=== PATIENT | female | born 1960 | race Caucasian/White ===

== ENCOUNTER 2025-04-05 16:33 | Emergency (ER) | payer BC, OTHER ==
[2025-04-05] MEDS ORDERED: KETOROLAC 30 MG/ML INJ ONE (17:39)
[2025-04-05] MEDS ORDERED: NA CHLORIDE 0.9% 1,000 ML ONE (17:39)
[2025-04-05] MEDS ORDERED: MORPHINE 4 MG/ML SYR ONE (17:39)
[2025-04-05] MEDS ORDERED: ONDANSETRON 4 MG/2 ML VIAL ONE (17:39)
[2025-04-05 17:45] LABS: Absolute Lymphocytes (CBC) 0.6 K/uL (0.7-4.9); Hematocrit 39.6 % (36.0-45.0); Hemoglobin 13.4 g/dL (12.0-15.0); MCH 32.5 pg (27.0-35.0); MCHC 33.7 g/dL (32.0-36.0); MCV 96.4 fL (80-100); MPV 8.1 fL (7.6-11.3); Nucleated RBC Absolute Count 0.0 (0-0); Nucleated Red Blood Cells % 0.0 % (0-0); RBC Red Blood Cell Count 4.11 M/uL (3.86-4.86); White Blood Count 15.10 thou/uL (4.3-10.9)
[2025-04-05 17:55] LABS: Urine Crystals Unidentified Few /HPF (None Seen); Urine Culture Reflex Order REFLEXED; Urine Microscopic Reflex YN ORDER UMIC; Urine WBC Clump Occasional /HPF (None Seen); Urine Yeast (Budding) Trace /HPF (None Seen)
[2025-04-05 18:37] LABS: Blood Morphology Comment NOT SEEN (NOT SEEN); White Blood Cell Scan OK (OK)
[2025-04-05 18:44] LABS: PT Prothrombin Time 14.2 SECONDS (10-13.0); PTT, Activated Partial Thromb 34.7 SECONDS (27.2-37.4); Protime INR 1.27
[2025-04-05 19:32] LABS: ALT/SGPT 23.0 U/L (13-56); AST/SGOT 20.0 U/L (15-37); Albumin 2.7 g/dL (3.4-5.0); Albumin/Globulin Ratio 0.9 (1.1-1.8); Alkaline Phosphatase 73.0 U/L (45-117); Anion Gap 8.9 mEq/L (5.0-15.0); BUN Blood Urea Nitrogen 18.0 mg/dL (7-18); Globulin 3.1 g/dL (2.3-3.5); Glucose Level 115.0 mg/dL (74-106); Lipase 10.0 U/L (13-75); Potassium 3.9 mEq/L (3.5-5.1)
[2025-04-05] MEDS ORDERED: CEFTRIAXONE 1000 MG/VIAL ONE (19:59)
--- NOTE | 2025-04-05 20:11 | ER ---
Nurse's Notes [facility] Name: Harper Pelaez Age: 64 yrs Sex: Female : 1960 Arrival Date: 04/05/2025 Time: 16:33 Bed 14 Private MD: Diagnosis: UTI/ Urinary tract infection, site not specified;Hydronephrosis with ureteral stricture, not elsewhere classified-left Presentation: 04/05 16:45 Chief complaint: Patient states: she started having left flank pain yesterday. patient ap3 states she has a history of kidney stones and believes she is having one now. Coronavirus screen: At this time, the client does not indicate any symptoms associated with coronavirus-19. Ebola Screen: No symptoms or risks identified at this time. Initial Sepsis Screen: Does the patient meet any 2 criteria? HR > 90 bpm. Does the patient have a suspected source of infection? No. Patient's initial sepsis screen is negative. Risk Assessment: Do you want to hurt yourself or someone else? Patient reports no desire to harm self or others. Onset of symptoms was April 04, 2025. 16:45 Method Of Arrival: Ambulatory ap3 16:45 Acuity: JAZMYNE 3 ap3 Triage Assessment: 16:47 General: Appears in no apparent distress. Behavior is calm, cooperative, appropriate ap3 for age. Pain: Complains of pain in left flank. Neuro: Level of Consciousness is awake, alert, obeys commands, Oriented to person, place, time, situation, Appropriate for age. Cardiovascular: Patient's skin is warm and dry. Respiratory: Airway is patent Respiratory effort is even, unlabored, Respiratory pattern is regular, symmetrical. GI: Reports lower abdominal pain. : Reports pain in left flank(s). Historical: - Allergies: 16:46 No Known Allergies; ap3 - Home Meds: 16:46 None [Active]; ap3 - PMHx: 16:46 None; ap3 - Immunization history:: Adult Immunizations up to date. - Infectious Disease History:: Denies. - Social history:: Smoking status: Patient reports the use of cigarette tobacco products, smokes 1.5 packs per day. Screenin:47 [facility] ED Fall Risk Assessment (Adult) History of falling in the last 3 months, ap3 including since admission No falls in past 3 months (0 pts) Confusion or Disorientation No (0 pts) Intoxicated or Sedated No (0 pts) Impaired Gait No (0 pts) Mobility Assist Device Used No (0 pt) Altered Elimination No (0 pt) Score/Fall Risk Level 0 - 2 = Low Risk Oriented to surroundings, Maintained a safe environment, Educated pt \T\ family on fall prevention, incl call for assistance when getting out of bed, Assessed \T\ reinforced patient's understanding of fall precautions, Hourly rounding (assess needs \T\ fall precautionary measures) done, Used ambulatory aids as needed (educated on \T\ assisted with). Abuse screen: Denies threats or abuse. Nutritional screening: No deficits noted. Tuberculosis screening: No symptoms or risk factors identified. Assessment: 17:48 Reassessment: Patient appears in no apparent distress at this time. Patient and/or db family updated on plan of care and expected duration. Pain level reassessed. Patient is alert, oriented x 3, equal unlabored respirations, skin warm/dry/pink. General: Appears in no apparent distress. comfortable, Behavior is calm, cooperative. Neuro: Level of Consciousness is awake, alert, obeys commands, Oriented to person, place, time, situation. Respiratory: Airway is patent Respiratory effort is even, unlabored, Respiratory pattern is regular, symmetrical. GI: Bowel sounds present X 4 quads. Abd is soft Reports lower abdominal pain. 19:31 Reassessment: Patient appears in no apparent distress at this time. Patient and/or bm8 family updated on plan of care and expected duration. Pain level reassessed. Patient is alert, oriented x 3, equal unlabored respirations, skin warm/dry/pink. Patient denies pain at this time. Patient states feeling better. Patient states symptoms have improved. General: Appears in no apparent distress. comfortable, Behavior is calm, cooperative, appropriate for age. Pain: Denies pain. Neuro: No deficits noted. Cardiovascular: No deficits noted. Respiratory: No deficits noted. Airway is patent Trachea midline Respiratory effort is even, unlabored, Respiratory pattern is regular, symmetrical. GI: No deficits noted. No signs and/or symptoms were reported involving the gastrointestinal system. : No deficits noted. No signs and/or symptoms were reported regarding the genitourinary system. EENT: No deficits noted. No signs and/or symptoms were reported regarding the EENT system. Derm: No deficits noted. No signs and/or symptoms reported regarding the dermatologic system. Musculoskeletal: No deficits noted. No signs and/or symptoms reported regarding the musculoskeletal system. 20:19 Reassessment: Patient appears in no apparent distress at this time. Patient and/or bm8 family updated on plan of care and expected duration. Pain level reassessed. Patient is alert, oriented x 3, equal unlabored respirations, skin warm/dry/pink. Patient denies pain at this time. Patient states feeling better. Patient states symptoms have improved. 21:30 Reassessment: Patient and/or family updated on plan of care and expected duration. Pain zm level reassessed. Patient is alert, oriented x 3, equal unlabored respirations, skin warm/dry/pink. Patient states symptoms have not improved. Pain: Pain currently is 7 out of 10 on a pain scale. 22:09 Reassessment: attempted to give report and was placed on hold for longer than 6 minutes.zm 22:21 Reassessment: Report given to BABR Casas at [facility]. Vital Signs: 16:45 BP 151 / 97; Pulse 96; Resp 18; Temp 97.5; Pulse Ox 98% ; Weight 90.72 kg; Height 5 ft. ap3 4 in. ; 17:42 BP 99 / 76; Pulse 92; Resp 18; Pulse Ox 98% ; db 18:00 BP 108 / 56; Pulse 93; Resp 16; Pulse Ox 98% ; db 19:32 BP 108 / 60; Pulse 101; Resp 19; Temp 97.5; Pulse Ox 98% ; Pain 0/10; bm8 20:19 BP 105 / 60; Pulse 100; Resp 19; Temp 97.5; Pulse Ox 96% ; Pain 0/10; bm8 22:54 BP 115 / 59; Pulse 107; Resp 16; Temp 97.9; Pulse Ox 95% on 2 lpm NC; zm 16:45 Body Mass Index 34.33 (90.72 kg, 162.56 cm) ap3 19:32 Pain Scale: Adult bm8 20:19 Pain Scale: Adult bm8 Bridger Coma Score: 19:32 Eye Response: spontaneous(4). Motor Response: obeys commands(6). Verbal Response: bm8 oriented(5). Total: 15. 20:19 Eye Response: spontaneous(4). Motor Response: obeys commands(6). Verbal Response: bm8 oriented(5). Total: 15. 22:54 Eye Response: spontaneous(4). Motor Response: obeys commands(6). Verbal Response: zm oriented(5). Total: 15. ED Course: 16:38 Patient arrived in ED. al6 16:38 Liz Leon PA-C is PHCP. sb4 16:38 Ghanshyam Tracey MD is Attending Physician. sb4 16:46 Triage completed. ap3 16:48 Arm band placed on right wrist. ap3 17:31 Giulia Longo, RN is Primary Nurse. db 17:35 Initial lab(s) drawn, by me, sent to lab. Inserted saline lock: 20 gauge in right db antecubital area, using aseptic technique. Blood collected. Flushed with 10 mL NS. 17:38 UA Rfx Tommy Cult if indicated Sent. rk3 17:39 CBC with Diff Sent. rk3 17:39 CMP Sent. rk3 17:39 Lipase Sent. rk3 18:00 First set of blood cultures drawn by me. db 18:07 Patient has correct armband on for positive identification. Bed in low position. Call db light in reach. Side rails up X 1. Pulse ox on. NIBP on. Warm blanket given. Pillow given. 18:22 Lab(s) recollected, sent to lab. Second set of blood cultures drawn by me. db 18:48 Radiology exam delayed due to lab results not completed at this time. (BUN/Creatinine). iv 19:24 Naseem Kennedy, RN is Primary Nurse. bm8 19:32 No provider procedures requiring assistance completed. Patient maintains SpO2 bm8 saturation greater than 95% on room air. 19:59 CT Abd/Pelvis - IV Contrast Only In Process Unspecified. EDMS 20:03 PHCP role handed off by Liz Leon PA-C cp 20:03 Nikita Brink PA-C is PHCP. cp 20:21 Provided Education on: need for transfer. bm8 20:21 Patient transferred, IV remains in place. bm8 21:44 Bed in low position. Call light in reach. Side rails up X2. Client placed on continuous zm cardiac and pulse oximetry monitoring. NIBP monitoring applied. monitoring tech on. 21:44 Oxygen administration via nasal cannula \T\ 2L/min. zm 21:50 pt was accepted to [facility] [address] 1631. Accepting G[facility] [place] \T\[id number]. Accepting admin kmf Angelika Leal \T\2121. Number for nurse to nurse report [phone]. 21:52 [facility] to transfer pt. kmf Administered Medications: 17:40 Drug: TORadol - Ketorolac IVP 15 mg IVP once Route: IVP; Site: right antecubital; db 20:20 Follow up: Response: No adverse reaction bm8 17:40 Drug: Ondansetron IVP 4 mg IVP once; over 2 minutes Route: IVP; Site: right antecubital;db 20:20 Follow up: Response: No adverse reaction bm8 17:40 Drug: morphine IVP or IV 4 mg IVP once over 4 mins Route: IVP; Infused Over: 4 mins; db Site: right antecubital; 20:20 Follow up: Response: No adverse reaction bm8 17:40 Drug: NS 0.9% IV 1000 ml IV at 1 bolus Per protocol; to be given as a bolus over 60 db minutes Route: IV; Rate: 1 bolus; Site: right antecubital; 20:20 Follow up: Response: No adverse reaction; IV Status: Completed infusion bm8 20:18 Drug: Rocephin IV 1 grams IV at calculated rate once; Given slow IV push per pharmacy bm8 instructions Route: IV; Rate: calculated rate; Site: right forearm; 21:43 Follow up: Response: No adverse reaction; IV Status: Completed infusion zm 21:40 Drug: fentaNYL (PF) IVP 50 mcg IVP once Route: IVP; Site: right antecubital; zm 22:41 Follow up: Response: No adverse reaction Medication: 19:32 VIS not applicable for this client. bm8 Outcome: 20:10 ER care complete, transfer ordered by . christine 22:54 Transferred by ground EMS to [facility], Transfer form completed. zm X-rays sent w/ patient. 22:54 Condition: stable 22:54 Instructed on follow up and referral plans. the need for transfer, Demonstrated understanding of instructions, follow-up care, 22:57 Patient left the ED. zm Signatures: Dispatcher [employer] EDMT Page, LEXII Shelton PA-C, cp, Amanda RN RN ap3 Yaquelin Cummings RN RN zm Giulia Longo, RN RN Liz Mercedes PA-C PA-C sb4 Janell Kat iv, Kelsey Maroul [facility] Naseem Kennedy RN RN bm8 Karla Park al6 Jaya Craig rk3 Corrections: (The following items were deleted from the chart) 20:06 20:04 BP 120 / 96; Pulse 70bpm; Resp 18bpm; Pulse Ox 94% 3 lpm; Temp 98F; bm8 bm8 21:42 21:41 Reassessment: Patient and/or family updated on plan of care and expected zm duration. Pain level reassessed. Patient is alert, oriented x 3, equal unlabored respirations, skin warm/dry/pink. Patient states symptoms have not improved. 21:42 21:41 Pain: Pain currently is 7 out of 10 on a pain scale. [facility]
--- NOTE | 2025-04-05 20:11 | EDPHYS ---
Physician Documentation [facility] Name: Harper Pelaez Age: 64 yrs Sex: Female : 1960 Arrival Date: 04/05/2025 Time: 16:33 Bed 14 Private MD: ED Physician Ghanshyam Tracey HPI: 04/05 17:12 This 64 yrs old Female presents to ER via Ambulatory with complaints of Abdominal Pain, sb4 Low Back Pain. 17:12 Patient reports left flank pain and left lower quadrant abdominal pain since yesterday sb4 morning. States that the pain feels similar to when she has had a kidney stone. States her last stone was 10 years ago and required lithotripsy. Denies any difficulty urinating, pain with urination, or blood in her urine. Denies any nausea, vomiting, diarrhea. States that she took some magnesium last night that did not improve her symptoms. Historical: - Allergies: 16:46 No Known Allergies; ap3 - Home Meds: 16:46 None [Active]; ap3 - PMHx: 16:46 None; ap3 - Immunization history:: Adult Immunizations up to date. - Infectious Disease History:: Denies. - Social history:: Smoking status: Patient reports the use of cigarette tobacco products, smokes 1.5 packs per day. ROS: 17:12 Constitutional: Negative for fever, chills, and weight loss, sb4 17:12 Abdomen/GI: Positive for abdominal pain, 17:12 Back: Positive for flank pain, on the left, 17:12 All other systems are negative, Exam: 17:12 Head/Face: Normocephalic, atraumatic. Eyes: Extra-ocular motions intact. Periorbital sb4 areas with no swelling, redness, or edema. ENT: Mucous membranes moist. Cardiovascular: Regular rate and rhythm with a normal S1 and S2. Respiratory: No increased work of breathing, no retractions or nasal flaring. Skin: Warm, dry with normal turgor. Normal color with no rashes, no lesions, and no evidence of cellulitis. 17:12 Constitutional: The patient appears alert, awake, uncomfortable, 17:12 Abdomen/GI: Palpation: mild abdominal tenderness, in the left upper quadrant and left lower quadrant, 17:12 Back: CVA tenderness, is noted on the left, Vital Signs: 16:45 BP 151 / 97; Pulse 96; Resp 18; Temp 97.5; Pulse Ox 98% ; Weight 90.72 kg; Height 5 ft. ap3 4 in. ; 17:42 BP 99 / 76; Pulse 92; Resp 18; Pulse Ox 98% ; db 18:00 BP 108 / 56; Pulse 93; Resp 16; Pulse Ox 98% ; db 19:32 BP 108 / 60; Pulse 101; Resp 19; Temp 97.5; Pulse Ox 98% ; Pain 0/10; bm8 20:19 BP 105 / 60; Pulse 100; Resp 19; Temp 97.5; Pulse Ox 96% ; Pain 0/10; bm8 22:54 BP 115 / 59; Pulse 107; Resp 16; Temp 97.9; Pulse Ox 95% on 2 lpm NC; zm 16:45 Body Mass Index 34.33 (90.72 kg, 162.56 cm) ap3 19:32 Pain Scale: Adult bm8 20:19 Pain Scale: Adult bm8 Blackey Coma Score: 19:32 Eye Response: spontaneous(4). Motor Response: obeys commands(6). Verbal Response: bm8 oriented(5). Total: 15. 20:19 Eye Response: spontaneous(4). Motor Response: obeys commands(6). Verbal Response: bm8 oriented(5). Total: 15. 22:54 Eye Response: spontaneous(4). Motor Response: obeys commands(6). Verbal Response: zm oriented(5). Total: 15. MDM: 16:39 Medical Screening Exam initiated sb4 17:14 Differential diagnosis: diverticulitis, non-specific abd pain, Pyelonephritis, sb4 Ureterolithiasis, urinary tract infection. 19:29 Awaiting: labs results, Chemistry was hemolyzed and repeat collect was sent without a sb4 barcode therefore delaying results and imaging. 20:00 Post IV fluid administration reassessment for Sepsis: Client not prescribed the 30 cp mL/kg IVF due to: Amount of IVF prescribed: 1000 lactate wnl Lungs: Noted to be clear bilaterally. Current vital signs reviewed: Yes. 20:30 Data reviewed: vital signs, nurses notes, lab test result(s), radiologic studies, CT cp scan, I have discussed the patient's presentation/case with the attending Emergency Department Physician; and as a result, I will transfer patient for urology services. 20:30 I considered the following discharge prescriptions or medication management in the emergency department Medications were administered in the Emergency Department. See MAR. Counseling: I had a detailed discussion with the patient and/or guardian regarding the historical points, exam findings, and any diagnostic results supporting the discharge/admit diagnosis, lab results, radiology results, the need to transfer to another facility, [facility] does not immediately have the required specialist. Response to treatment: the patient's symptoms have mildly improved after treatment. 21:06 ED course: Consult with urologist Dr. Espitia at [facility] in [place] who will consult and cp request transfer be done to service of hospitalist. 04/05 16:58 Order name: CBC with Diff; Complete Time: 18:37 [facility] 04/05 20:08 Interpretation: Normal except: WBC 15.10; GERONIMO% 91.5; LYM% 4.3; NEUT A 13.8; LYMA 0.6. 04/05 16:58 Order name: CMP; Complete Time: 19:33 [facility] 04/05 20:08 Interpretation: Normal except: CL 111; GLUC 115; CRE 1.47; GFR 40; CA 7.9; TP 5.8; A/G cp 0.9; ALB 2.7. 04/05 16:58 Order name: Lipase; Complete Time: 19:33 4 04/05 16:58 Order name: UA Rfx Tommy Cult if indicated; Complete Time: 18:04 [facility] 04/05 20:09 Interpretation: Normal except: [facility] Extremely Turbid; Urine SG > 1.030; UBLD 3+; UPROT cp 1+; UUROB 1+; UESTR 500; UWBC >50; URBC 21-50; UWBC Clump Occasional; BYST Trace. 04/05 17:52 Order name: CBC Smear Scan; Complete Time: 18:37 [facility] 04/05 18:04 Order name: Urine Culture [facility] 04/05 18:05 Order name: Blood Culture Adult (2) [facility] 04/05 18:05 Order name: Lactate w/ 2H reflex if indic.; Complete Time: 18:53 [facility] 04/05 18:05 Order name: Protime (+inr); Complete Time: 18:49 [facility] 04/05 18:05 Order name: Ptt, Activated; Complete Time: 18:49 4 04/05 16:58 Order name: CT Abd/Pelvis - IV Contrast Only; Complete Time: 20:26 sb4 04/05 16:58 Order name: IV Saline Lock; Complete Time: 17:38 sb4 04/05 16:58 Order name: Labs collected and sent; Complete Time: 17:38 4 04/05 17:51 Order name: Labs - recollect needed: recollect the comp and lipase; Complete Time: 18:27eb Administered Medications: 17:40 Drug: TORadol - Ketorolac IVP 15 mg IVP once Route: IVP; Site: right antecubital; db 20:20 Follow up: Response: No adverse reaction bm8 17:40 Drug: Ondansetron IVP 4 mg IVP once; over 2 minutes Route: IVP; Site: right antecubital;db 20:20 Follow up: Response: No adverse reaction bm8 17:40 Drug: morphine IVP or IV 4 mg IVP once over 4 mins Route: IVP; Infused Over: 4 mins; db Site: right antecubital; 20:20 Follow up: Response: No adverse reaction bm8 17:40 Drug: NS 0.9% IV 1000 ml IV at 1 bolus Per protocol; to be given as a bolus over 60 db minutes Route: IV; Rate: 1 bolus; Site: right antecubital; 20:20 Follow up: Response: No adverse reaction; IV Status: Completed infusion bm8 20:18 Drug: Rocephin IV 1 grams IV at calculated rate once; Given slow IV push per pharmacy bm8 instructions Route: IV; Rate: calculated rate; Site: right forearm; 21:43 Follow up: Response: No adverse reaction; IV Status: Completed infusion zm 21:40 Drug: fentaNYL (PF) IVP 50 mcg IVP once Route: IVP; Site: right antecubital; zm 22:41 Follow up: Response: No adverse reaction zm Disposition Summary: 04/05/25 20:10 Transfer Ordered Notes: Reason: Higher level of care cp Condition: Stable cp Problem: new cp Symptoms: have improved cp Transfer Location: [facility](04/05/25 21:16) cp Accepting Physician: doctor(04/05/25 22:57) zm Diagnosis - UTI/ Urinary tract infection, site not specified cp - Hydronephrosis with ureteral stricture, not elsewhere classified - left cp Forms: - Medication Reconciliation Form cp - SBAR form cp Signatures: Dispatcher [employer] EDMS Nikita Brink, Diamond Duarte PA-C, cp, RN RN ap3 Jazlyn Mora Zaina, RN RN zm Giulia Longo, RN RN Liz Mercedes PA-C PA-C sb4 Naseem Kennedy RN RN bm8 Corrections: (The following items were deleted from the chart) 18:05 18:05 BLOOD CULTURE*+BA.LAB.BRZ ordered. EDMS EDMS 18:05 18:05 LACTATE+C.LAB.BRZ ordered. EDMS EDMS 18:05 18:05 PROTIME (+INR)+COAG.LAB.BRZ ordered. EDMS EDMS 18:05 18:05 PTT, ACTIVATED+COAG.LAB.BRZ ordered. EDMS EDMS 20:33 20:10 doctor cp cp 21:16 20:10 [facility] cp cp 21:16 20:33 doctor cp cp 22:57 21:16 doctor cp zm
--- NOTE | 2025-04-05 20:22 | RAD REPORT ---
EXAMINATION: Abdomen Pelvis W Contrast CLINICAL INDICATION: Female, 64 years old.Abd pain;Flank pain TECHNIQUE: CT abdomen and pelvis was performed, after the administration of IV contrast, [facility]. Axial, sagittal and coronal reconstructions were obtained. One or more of the following dose reduction techniques were used: Automated exposure control, adjustment of the mA and/o r kV according to patient size, and/or iterative reconstruction. Unless otherwise specified, incidental findings do not require dedicated imaging follow-up. [id number]. COMPARISON: No prior exams FINDINGS: LOWER CHEST: Likely atelectasis versus pneumonitis at the left lung base.No significant pericardial e ffusion. Mild circumferential thickening of the distal esophagus which could reflect esophagitis. UPPER GI: No significant abnormality. LIVER: Hepatic steatosis, but otherwise unremarkable. GALLBLADDER/BILE DUCTS: No biliary ductal dilatation.? PANCREAS: No mass, ductal dilation, or stefano-pancreatic fluid. SPLEEN: Unremarkable. ADRENALS: No adrenal masses. KIDNEYS AND URETERS: Severe hydronephrosis at the upper pole the left kidney and to lesser extent the left lower pole. Multiple left renal calculi. The largest is a conglomerate of stones in the lower pole measuring 14 mm. There are a couple of stones in the renal pelvis however the obstruction may or may not be as a result of the stone and could be from a stricture.There is evidence of some left renal cortical thinning. The right kidney is mildly atrophic. ABDOMINAL AORTA AND OTHER VESSELS: Moderate atherosclerotic changes without aortic aneurysm. PERITONEUM: No abnormal free fluid. No free air. LYMPH NODES: No pathologic lymphadenopathy. ABDOMINAL WALL: Unremarkable SMALL BOWEL/COLON: Small bowel has normal course and caliber. No colonic wall thickening or pericolon ic inflammatory changes.Normal appendix. Mild diverticulosis without diverticulitis. URINARY BLADDER: Underdistended but grossly unremarkable. REPRODUCTIVE ORGANS: No pathologic process. MUSCULOSKELETAL: Multilevel degenerative changes in the spine. No acute fracture. ADDITIONAL FINDINGS: None. IMPRESSION: Left-sided hydronephrosis and possible associated infection secondary to an obstruction at the level of the left UPJ. Multiple left renal calculi are present including stones at the left renal pelvis however the obstruction could be either as a result of a left UPJ stricture or obstructing stone. The stone that is near the left UPJ but does not appear to be covering the orifice. Recommend urologic consultation.
[2025-04-05] MEDS ORDERED: FENTANYL CITR 100 MCG/2 ML ONE (21:27)
[2025-04-06 08:20] VITALS: BP 115/59; TEMP 97.9; O2SAT 95
== END 2025-04-05 22:57 | disposition short-term general hospital (02) ==
LOC: ER 16:33
DX: N39.0 Urinary tract infection, site not specified (principal); N13.1 Hydronephrosis with ureteral stricture, not elsewhere classified; Z87.442 Personal history of urinary calculi; F17.210 Nicotine dependence, cigarettes, uncomplicated
CPT/HCPCS: 96365; 96361; 87040 ×2; 87088; 85025; 81001; 87086; 36415; 87205 ×4; 85610; 83605; 85730; 83690; 80053; 74177; 96375; 99285; Q9967; J3010; J2405; J7030; J0696; 87077; 87186

== ENCOUNTER 2025-04-13 14:09 | Emergency (ER) | payer OTHER ==
--- NOTE | 2025-04-13 15:44 | RAD REPORT ---
EXAMINATION: UPPER EXTREMITY VENOUS UNILATE CLINICAL INDICATION: Female, 64 years old. [facility] MAIN Pain;Swelling Bed Name: [id number] TECHNIQUE: Complete venous duplex sonography of the right upper extremity was performed. The examinat ion included compression for vein patency, color Doppler imaging and flow augmentation in response to distal compression of the internal jugular, brachiocephalic, subclavian, axillary, brachial, radia l, ulnar, cephalic and basilic veins. COMPARISON: No prior exam. FINDINGS: Duplex sonography testing of the veins of the right upper extremity is completed. Color flow imaging shows all veins to be compressible with appropriate color filling. Pulsatile and phasic flow is present within the upper extremity deep and superficial veins examined. IMPRESSION: There is no deep vein or superficial vein thrombosis.
--- NOTE | 2025-04-13 15:52 | ER ---
Nurse's Notes [facility] Name: Harper Pelaez Age: 64 yrs Sex: Female : 1960 Arrival Date: 04/13/2025 Time: 14:09 Bed 20 Private MD: Diagnosis: Local infection of the skin and subcutaneous tissue, unspecified Presentation: 04/13 14:15 Chief complaint: Patient states: sore wound on right arm from an IV removed on Sunday. dd2 Coronavirus screen: At this time, the client does not indicate any symptoms associated with coronavirus-19. Ebola Screen: No symptoms or risks identified at this time. Initial Sepsis Screen: Does the patient meet any 2 criteria? No. Patient's initial sepsis screen is negative. Does the patient have a suspected source of infection? No. Patient's initial sepsis screen is negative. Risk Assessment: Do you want to hurt yourself or someone else? Patient reports no desire to harm self or others. Onset of symptoms was April 10, 2025. 14:15 Method Of Arrival: Ambulatory dd2 14:15 Acuity: JAZMYNE 3 dd2 Triage Assessment: 14:19 General: Appears in no apparent distress. uncomfortable, Behavior is cooperative, dd2 appropriate for age. Pain: Complains of pain in right antecubital area. Derm: Wound noted right antecubital area Reports pain. Historical: - Allergies: 14:19 No Known Allergies; dd2 - PMHx: 14:19 None; dd2 - PSHx: 14:19 None; dd2 - Immunization history:: Adult Immunizations unknown. - Infectious Disease History:: Denies. - Social history:: Smoking status: Patient reports the use of cigarette tobacco products, smokes one pack cigarettes per day. Screenin:20 [facility] ED Fall Risk Assessment (Adult) History of falling in the last 3 months, bp including since admission No falls in past 3 months (0 pts) Confusion or Disorientation No (0 pts) Intoxicated or Sedated No (0 pts) Impaired Gait No (0 pts) Mobility Assist Device Used No (0 pt) Altered Elimination No (0 pt) Score/Fall Risk Level 0 - 2 = Low Risk Oriented to surroundings. Abuse screen: Denies threats or abuse. Denies injuries from another. Nutritional screening: No deficits noted. Tuberculosis screening: No symptoms or risk factors identified. Assessment: 14:20 General: SEE TRIAGE NOTE. bp 15:34 Reassessment: Patient appears in no apparent distress at this time. Patient is alert, bp oriented x 3, equal unlabored respirations, skin warm/dry/pink. Vital Signs: 14:15 BP 148 / 84; Pulse 88; Resp 17; Temp 98.5; Pulse Ox 100% on R/A; Weight 90.72 kg; dd2 Height 5 ft. 4 in. ; Pain 2/10; 16:05 BP 145 / 79; Pulse 79; Resp 16; Pulse Ox 99% ; bp 14:15 Body Mass Index 34.33 (90.72 kg, 162.56 cm) dd2 14:15 Pain Scale: Adult dd2 ED Course: 14:12 Patient arrived in ED. im 14:13 Batsheva Jeffrey FNP-C is PHCP. kb 14:13 Casey Drew DO is Attending Physician. kb 14:19 Triage completed. dd2 14:19 Arm band placed on right wrist. dd2 14:56 Jason Rome, RN is Primary Nurse. bp 15:01 UPPER EXTREMITY VENOUS UNILATE In Process Unspecified. EDMS 15:35 Patient has correct armband on for positive identification. bp 16:05 No provider procedures requiring assistance completed. IV discontinued, intact, bp bleeding controlled, No redness/swelling at site. Pressure dressing applied. Administered Medications: No medications were administered Outcome: 15:52 Discharge ordered by MD. kb 16:05 Discharged to home ambulatory, bp 16:05 Condition: stable 16:05 Discharge instructions given to patient, Instructed on discharge instructions, follow up and referral plans. medication usage, Demonstrated understanding of instructions, follow-up care, medications, Prescriptions given X 1, 16:05 Patient left the ED. bp Signatures: Dispatcher [employer] EDMS Batsheva Jeffrey FNP-C FNP-Jason Lee, RN RN Zainab Sprague DIANA, RN RN dd2
--- NOTE | 2025-04-13 15:52 | EDPHYS ---
Physician Documentation [facility] Name: Harper Pelaez Age: 64 yrs Sex: Female : 1960 Arrival Date: 04/13/2025 Time: 14:09 Bed 20 Private MD: ED Physician Casey Drew HPI: 04/13 14:18 This 64 yrs old Female presents to ER via Unassigned with complaints of Skin Problem - kb on arm. 14:18 Pt is a 64 year old female who presents for redness, swelling and pain to right forearm kb where she had an IV last week. States IV was removed on Sunday and she the redness and swelling have presented since then. Pt is currently taking cipro for an infected kidney stone. Denies fever. . Historical: - Allergies: 14:19 No Known Allergies; dd2 - PMHx: 14:19 None; dd2 - PSHx: 14:19 None; dd2 - Immunization history:: Adult Immunizations unknown. - Infectious Disease History:: Denies. - Social history:: Smoking status: Patient reports the use of cigarette tobacco products, smokes one pack cigarettes per day. ROS: 14:17 Constitutional: As per HPI kb Exam: 14:17 Constitutional: This is a well developed, well nourished patient who is awake, alert, kb and in no acute distress. Head/Face: Normocephalic, atraumatic. ENT: Moist Mucous membranes Respiratory: Respirations even and unlabored. No increased work of breathing. Talking in full sentences MS/ Extremity: Pulses equal, no cyanosis. Neurovascular intact. Full, normal range of motion. Neuro: Awake and alert, GCS 15, oriented to person, place, time, and situation. 14:17 Skin: hematoma with surrounding erythema and swelling to right forearm/elbow area. Vital Signs: 14:15 BP 148 / 84; Pulse 88; Resp 17; Temp 98.5; Pulse Ox 100% on R/A; Weight 90.72 kg; dd2 Height 5 ft. 4 in. ; Pain 2/10; 16:05 BP 145 / 79; Pulse 79; Resp 16; Pulse Ox 99% ; bp 14:15 Body Mass Index 34.33 (90.72 kg, 162.56 cm) dd2 14:15 Pain Scale: Adult dd2 MDM: 14:13 Medical Screening Exam initiated kb 15:51 Differential diagnosis: dvt, thrombophlebitis, abscess, cellulitis. Data reviewed: kb vital signs, nurses notes. Counseling: I had a detailed discussion with the patient and/or guardian regarding the historical points, exam findings, and any diagnostic results supporting the discharge/admit diagnosis, radiology results, the need for outpatient follow up, a family practitioner, to return to the emergency department if symptoms worsen or persist or if there are any questions or concerns that arise at home. 04/13 14:23 Order name: UPPER EXTREMITY VENOUS UNILATE; Complete Time: 15:51 EDMS Administered Medications: No medications were administered Disposition: 16:13 I was immediately available on-site in the Emergency Department for consultation in the nm3 care of the patient. Disposition Summary: 04/13/25 15:52 Discharge Ordered Notes: Location: Home kb Condition: Stable kb Diagnosis - Local infection of the skin and subcutaneous tissue, unspecified kb Followup: kb - With: Private Physician - When: 2 - 3 days - Reason: Recheck today's complaints, Continuance of care, Re-evaluation by your physician Followup: kb - With: Emergency Department - When: As needed - Reason: Worsening of condition Discharge Instructions: - Discharge Summary Sheet kb - Wound Infection, [id number] kb Forms: - Medication Reconciliation Form kb - Antibiotic Education kb - Prescription Opioid Use kb - Patient Portal Instructions kb - Leadership Thank You Letter kb Prescriptions: - Cephalexin 500 mg Oral Capsule - take 1 capsule ORAL route every 8 hours for 10 days; 30 capsule; Refills: 0, kb Product Selection Permitted Signatures: Dispatcher [employer] EDBatsheva Lainez, BAYLEE-C [employer]ING CUTTING MACHINE OPERATOR-Casey Holder, DO ms3 AKI VILLALBA RN RN dd2 Corrections: (The following items were deleted from the chart) 14: 14:17 Extremity Venous Uni [email or web address] ordered. EDTN EDMS
[2025-04-13 19:18] VITALS: TEMP 98.5
[2025-04-13 19:19] VITALS: BP 145/79; O2SAT 99
== END 2025-04-13 16:05 | disposition home or self-care (01) ==
LOC: ER 14:09
DX: L08.9 Local infection of the skin and subcutaneous tissue, unspecified (principal); F17.210 Nicotine dependence, cigarettes, uncomplicated
CPT/HCPCS: 93971